=== PATIENT | female | born 1975 | race Caucasian/White ===

== ENCOUNTER 2019-04-07 06:55 | Emergency (ER) | payer BC, OTHER ==
[~2019-04-07] VITALS: Ht 177.8 cm; Wt 93.7 kg
[~2019-04-07 06:55] MED LIST: ALPR0.5T7 PO; ESCI10TA10 PO
--- NOTE | 2019-04-07 08:06 | NUR ---
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
--- NOTE | 2019-04-07 08:14 | NUR ---
THIS IS A 43 YEAR OLD FEMALE WHO C/O PT ABD PAIN AND LOWER BACK PAIN, WOKE UP ABOUT 3 AM WITH PAIN WITH URINATION AND BLOOD IN HER URINE, R FLANK PAIN WELL HX OF KIDNEY STONES
[2019-04-07] MEDS ORDERED: ONDANSETRON 2MG/ML, 2ML ONE (08:22)
[2019-04-07] MEDS ORDERED: MORPHINE SULFATE 4 MG/ML, 1ML ONE (08:22)
[2019-04-07] MEDS ORDERED: MORPHINE SULFATE 4 MG/ML, 1ML IVPush PRN (08:30)
[2019-04-07 08:39] LABS: BASOPHILS # (AUTO) 0.08 x10^3/uL (0-0.1); BASOPHILS % (AUTO) 1 % (0-1); EOSINOPHILS # (AUTO) 0.17 x10^3/uL (0-0.4); EOSINOPHILS % (AUTO) 2 % (1-7); LYMPHOCYTES # (AUTO) 1.84 x10^3/uL (1-3.4); LYMPHOCYTES % (AUTO) 16 % (22-44); MD NO; MEAN CORPUSCULAR HEMOGLOBIN 29.6 pg (27.0-34.8); MEAN CORPUSCULAR VOLUME 87.3 fL (80-100); MEAN PLATELET VOLUME 7.9 fL (7.4-10.4); MONOCYTES # (AUTO) 0.57 x10^3/uL (0.2-0.8); MONOCYTES % (AUTO) 5 % (2-9); NEUTROPHILS # (AUTO) 8.58 x10^3/uL (1.8-6.8); NEUTROPHILS % (AUTO) 76 % (42-75); PLATELET COUNT 312 x10^3/uL (130-400); RED BLOOD COUNT 4.98 x10^6/uL (3.82-5.3); RED CELL DISTRIBUTION WIDTH 13.7 % (9.6-15.2)
--- NOTE | 2019-04-07 08:47 | NUR ---
REPORT TO AIDA BOUCHER, PLAN OF CARE DISCUSSED
[2019-04-07 08:51] LABS: ALANINE AMINOTRANSFERASE 64 U/L (12-78); ALBUMIN 3.7 g/dL (3.4-5.0); ANION GAP 8 mmol/L (5-15); CALCIUM 8.9 mg/dL (8.5-10.1); CHLORIDE 107 mmol/L (98-107); CREATININE 0.89 mg/dL (0.55-1.02)
[2019-04-07 08:53] LABS: ALKALINE PHOSPHATASE 165 U/L (45-117); BILIRUBIN,TOTAL 0.4 mg/dL (0.2-1.0); TOTAL PROTEIN 7.7 g/dL (6.4-8.2)
[2019-04-07] MEDS ORDERED: ONDANSETRON 2MG/ML, 2ML IVPush ONE (09:00)
--- NOTE | 2019-04-07 09:14 | NUR ---
MEDICATED FOR PAIN, UA SENT. PT RESTING COMFORTABLE VS STABLE, NO NEEDS AT THIS TIME
[2019-04-07] MEDS ORDERED: SODIUM CHLORIDE FLUSH 10ML SYR IVF ONE (09:30)
[2019-04-07 09:37] LABS: CULTURE INDICATED? YES; MICROSCOPIC INDICATED
--- NOTE | 2019-04-07 10:42 | NUR ---
Patient/Caregiver given discharge instructions and they have confirmed that they understand the instructions. Patient ambulatory with steady gait.
[2019-04-07 10:43] VITALS: BP 136/85
== END 2019-04-07 10:45 | disposition home or self-care (01) ==
LOC: ED 08:59
DX: N30.01 Acute cystitis with hematuria (principal)
CPT/HCPCS: 36415; 74176; 80053; 81001; 83690; 85025; 87086; 87186; 96374; 96375; 99284; J2270; J2405

== ENCOUNTER 2019-05-01 16:43 | Emergency (ER) | payer BC ==
[~2019-05-01] VITALS: Ht 175.3 cm; Wt 92.0 kg
--- NOTE | 2019-05-01 16:54 | NUR ---
PT IN WITH C/O ABD THAT IS GETTING WORSE. PT STATES IT WAKES HER UP AT NIGHT. PT VERBALIZED SHE HAS BEEN TOLD THE PAIN WAS D/T UTI. PT WAS SENT BY URGENT CARE MD WHO IS CONCERNED ABOUT APPENDITIS. PT CAHNGED INTO [facility]OS[facility]ITAL [facility].
[2019-05-01] MEDS ORDERED: SODIUM CHLORIDE 0.9% 1,000 ML IV ONE (17:14)
[2019-05-01] MEDS ORDERED: MORPHINE SULFATE 4 MG/ML, 1ML IVPush PRN (17:30)
[2019-05-01] MEDS ORDERED: ONDANSETRON 2MG/ML, 2ML IVPush ONE (17:30)
[2019-05-01] MEDS ORDERED: SODIUM CHLORIDE FLUSH 10ML SYR IVF ONE (17:30)
[2019-05-01 17:42] LABS: BASOPHILS # (AUTO) 0.04 x10^3/uL (0-0.1); BASOPHILS % (AUTO) 1 % (0-1); EOSINOPHILS % (AUTO) 2 % (1-7); LYMPHOCYTES # (AUTO) 1.59 x10^3/uL (1-3.4); LYMPHOCYTES % (AUTO) 35 % (22-44); MD NO; MEAN CORPUSCULAR HEMOGLOBIN 29.6 pg (27.0-34.8); MEAN CORPUSCULAR HGB CONC 34.1 g/dL (32.4-35.8); MEAN PLATELET VOLUME 8.3 fL (7.4-10.4); MONOCYTES # (AUTO) 0.38 x10^3/uL (0.2-0.8); MONOCYTES % (AUTO) 8 % (2-9); NEUTROPHILS # (AUTO) 2.41 x10^3/uL (1.8-6.8); NEUTROPHILS % (AUTO) 53 % (42-75); PLATELET COUNT 238 x10^3/uL (130-400); RED BLOOD COUNT 4.69 x10^6/uL (3.82-5.3); RED CELL DISTRIBUTION WIDTH 13.4 % (9.6-15.2)
[2019-05-01 17:47] LABS: ALANINE AMINOTRANSFERASE 21 U/L (12-78); ALBUMIN 3.7 g/dL (3.4-5.0); ANION GAP 5 mmol/L (5-15); C-REACTIVE PROTEIN, QUANT 0.11 mg/dL (0.02-0.49); CALCIUM 8.7 mg/dL (8.5-10.1); CHLORIDE 109 mmol/L (98-107); CREATININE 0.88 mg/dL (0.55-1.02)
[2019-05-01 17:50] LABS: ALKALINE PHOSPHATASE 100 U/L (45-117); BILIRUBIN,TOTAL 0.6 mg/dL (0.2-1.0); TOTAL PROTEIN 7.1 g/dL (6.4-8.2)
[2019-05-01] MEDS ORDERED: MORPHINE SULFATE 4 MG/ML, 1ML ONE (17:51)
[2019-05-01] MEDS ORDERED: ONDANSETRON 2MG/ML, 2ML ONE (17:51)
--- NOTE | 2019-05-01 18:20 | NUR ---
pt returned from CT states pain medication and nausea meds are effective. Denies additional neeeds at this time. Bed rails up, call light within reach
[2019-05-01] MEDS ORDERED: OMNIPAQUE 350 MG/ML, 100ML BOTTLE ONE (18:25)
[2019-05-01 18:30] LABS: MICROSCOPIC NOT IND
[2019-05-01 18:55] LABS: CULTURE INDICATED? NO
[2019-05-01 19:03] VITALS: BP 139/77
--- NOTE | 2019-05-01 19:04 | NUR ---
PT RESTING ON GURNEY, MONITORS IN PLAE, SIDERAILS UP X2, CALL LIGHT WITHIN REACH. ERP AT BEDSIDE FOR RECHECK
== END 2019-05-01 19:18 ==
LOC: ED 19:12
DX: R10.31 Right lower quadrant pain (principal); R11.0 Nausea; Z90.710 Acquired absence of both cervix and uterus
CPT/HCPCS: 36415; 74177; 80053; 81003; 85025; 86140; 96374; 96375; 99284; J2270; J2405; J7030; Q9967

== ENCOUNTER → 2019-09-07 | Outpatient (CLI) | payer BC ==
[~2019-09-07] MED LIST changes: +HYDR-826 PO; +TRAM50TA2 PO
[2019-09-07 14:09] LABS: BASOPHILS # (AUTO) 0.05 x10^3/uL (0-0.1); BASOPHILS % (AUTO) 1 % (0-1); EOSINOPHILS # (AUTO) 0.18 x10^3/uL (0-0.4); EOSINOPHILS % (AUTO) 3 % (1-7); LYMPHOCYTES # (AUTO) 1.72 x10^3/uL (1-3.4); LYMPHOCYTES % (AUTO) 30 % (22-44); MD NO; MEAN CORPUSCULAR HEMOGLOBIN 28.5 pg (27.0-34.8); MEAN CORPUSCULAR HGB CONC 33.7 g/dL (32.4-35.8); MEAN CORPUSCULAR VOLUME 84.7 fL (80-100); MEAN PLATELET VOLUME 8.5 fL (7.4-10.4); MONOCYTES # (AUTO) 0.39 x10^3/uL (0.2-0.8); MONOCYTES % (AUTO) 7 % (2-9); NEUTROPHILS # (AUTO) 3.34 x10^3/uL (1.8-6.8); NEUTROPHILS % (AUTO) 59 % (42-75); PLATELET COUNT 248 x10^3/uL (130-400); RED BLOOD COUNT 4.76 x10^6/uL (3.82-5.3)
[2019-09-07 14:16] LABS: ALBUMIN 3.5 g/dL (3.4-5.0); ANION GAP 9 mmol/L (5-15); CALCIUM 8.7 mg/dL (8.5-10.1); CHLORIDE 107 mmol/L (98-107)
[2019-09-07 14:20] LABS: ALANINE AMINOTRANSFERASE 27 U/L (12-78); ALKALINE PHOSPHATASE 113 U/L (45-117); BILIRUBIN,TOTAL 0.4 mg/dL (0.2-1.0); CREATININE 0.77 mg/dL (0.55-1.02)
== END | disposition home or self-care (01) ==
LOC: STAR 12:59
PROVIDERS: ATTEND Obstetrics & Gynecology
DX: Z01.818 Encounter for other preprocedural examination (principal); N39.3 Stress incontinence (female) (male); G89.29 Other chronic pain; Z90.710 Acquired absence of both cervix and uterus
CPT/HCPCS: 36415; 80053; 85025

== ENCOUNTER 2019-09-13 10:32 | Day surgery (SDC) | payer BC ==
[~2019-09-13] VITALS: Ht 177.8 cm; Wt 92.1 kg
[~2019-09-13 10:32] MED LIST changes: +BUPIVACAINE/PF-EPI 0.25% 1:200K ONE; +DEXAMETHASONE 4 MG/ML, 1ML ONE; +FENTANYL PF 250 MCG/5ML ONE; +FLUORESCEIN SODIUM 500 MG/5 ML ONE; +GLYCOPYRROLATE 0.2MG/1ML, 5ML ONE; +KETOROLAC 30 MG/1 ML ONE; +LIDOCAINE-MPF 2% ,5ML ONE; +MIDAZOLAM 1 MG/ML, 2ML ONE; +ONDANSETRON 2MG/ML, 2ML ONE; +PROPOFOL 10 MG/ML, 20ML ONE; +ROCURONIUM 10MG/ML,5ML ONE; +SILVER NITRATE STICK TP ONE
[2019-09-13] MEDS ORDERED: LACTATED RINGERS 1,000 ML IV SCH (10:46)
[2019-09-13 10:57] VITALS: BP 115/80
[2019-09-13] MEDS ORDERED: SCOPOLAMINE 1MG PATCH TD SCH (11:00)
[2019-09-13] MEDS ORDERED: CHLORHEXIDINE 15 ML UDC MM ONE (11:00)
[2019-09-13] MEDS ORDERED: METOCLOPRAMIDE 5 MG/ML, 2ML IVPush PRN (11:30)
[2019-09-13] MEDS ORDERED: ONDANSETRON 2MG/ML, 2ML IVPush PRN (11:30)
[2019-09-13] MEDS ORDERED: MIDAZOLAM 1 MG/ML, 2ML IV PRN (11:30)
[2019-09-13] MEDS ORDERED: EPHEDRINE 50 MG/ML, 1ML IVPush PRN (11:30)
[2019-09-13] MEDS ORDERED: FENTANYL PF 100 MCG/2ML IV PRN (11:30)
[2019-09-13] MEDS ORDERED: DIAZEPAM 5 MG/ML, 2ML IVPush PRN (11:30)
[2019-09-13] MEDS ORDERED: ACETAMINOPHEN 325 MG TABLET PO PRN (11:30)
[2019-09-13] MEDS ORDERED: morphine SULFATE 10 MG/ML, 1ML IVPush PRN (11:30)
[2019-09-13] MEDS ORDERED: HYDROcodone/APAP 7.5-325MG/15ML UDC PO PRN (11:30)
[2019-09-13] MEDS ORDERED: DIPHENHYDRAMINE 50 MG/ML, 1ML IM PRN (11:30)
[2019-09-13] MEDS ORDERED: LABETALOL 5MG/ML, 20ML IV PRN (11:30)
[2019-09-13] MEDS ORDERED: DIPHENHYDRAMINE 50 MG/ML, 1ML IVPush PRN (11:30)
[2019-09-13] MEDS ORDERED: EPHEDRINE 50 MG/ML, 1ML IM PRN (11:30)
[2019-09-13] MEDS ORDERED: hydrALAzine 20 MG/ML, 1ML IV PRN (11:30)
[2019-09-13] MEDS ORDERED: ALBUTEROL/IPRATROPIUM 2.5MG/0.5MG, 3 ML NPPB PRN (11:30)
[2019-09-13] MEDS ORDERED: HALOPERIDOL 5 MG/ML IV PRN (11:30)
[2019-09-13] MEDS ORDERED: LORazepam 2 MG/ML, 1ML IVPush PRN (11:30)
[2019-09-13] MEDS ORDERED: KETOROLAC 30 MG/1 ML IVPush PRN (11:30)
[2019-09-13] MEDS ORDERED: CEFAZOLIN 1,000 MG ONE (11:34)
[2019-09-13] MEDS ORDERED: VANCOMYCIN 1,000 MG ONE (12:17)
[2019-09-13] MEDS ORDERED: GENTAMICIN 80 MG/2 ML ONE (12:17)
[2019-09-13] MEDS ORDERED: MIDAZOLAM 1 MG/ML, 2ML ONE (13:25)
[2019-09-13] MEDS ORDERED: HYDROcodone/APAP 7.5-325MG/15ML UDC ONE (13:37)
[2019-09-13] MEDS ORDERED: MEPERIDINE/PF 100 MG/ML ONE (13:37)
[2019-09-13] MEDS ORDERED: FENTANYL PF 100 MCG/2ML ONE (13:37)
[2019-09-13] MEDS: MEPERIDINE/PF 25MG/0.5ML IVPush PRN ×2 (13:49→13:57)
[2019-09-13] MEDS ORDERED: MORPHINE SULFATE 4 MG/ML, 1ML ONE (14:35)
[2019-09-13] MEDS ORDERED: OXYcodone/APAP 5/325MG TABLET PO PRN (18:30)
[2019-09-13] MEDS ORDERED: OXYcodone/APAP 5/325MG TABLET ONE (18:32)
== END 2019-09-13 19:35 | disposition home or self-care (01) ==
LOC: OUT 10:32
PROVIDERS: ATTEND Obstetrics & Gynecology
DX: G89.29 Other chronic pain (principal); R10.31 Right lower quadrant pain; Z11.59 Encounter for screening for other viral diseases; N39.3 Stress incontinence (female) (male); N81.10 Cystocele, unspecified; N83.11 Corpus luteum cyst of right ovary; N83.01 Follicular cyst of right ovary; N73.6 Female pelvic peritoneal adhesions (postinfective); F41.9 Anxiety disorder, unspecified; F32.9 Major depressive disorder, single episode, unspecified; E66.9 Obesity, unspecified; Z79.899 Other long term (current) drug therapy; Z88.8 Allergy status to other drugs, medicaments and biological substances; Z91.040 Latex allergy status; Z91.013 Allergy to seafood; Z90.710 Acquired absence of both cervix and uterus
CPT/HCPCS: 36415; 57240; 57288; 58661; 86850; 86900; 88305; C1771; J0690; J1100; J1580; J1885; J2175; J2250; J2270; J2405; J2704; J3010; J3370; J7120; U0001

== ENCOUNTER 2020-05-16 17:16 | Emergency (ER) | payer BC ==
[~2020-05-16] VITALS: Ht 177.8 cm; Wt 92.0 kg
[~2020-05-16 17:16] MED LIST changes: -BUPIVACAINE/PF-EPI 0.25% 1:200K ONE; -DEXAMETHASONE 4 MG/ML, 1ML ONE; -FENTANYL PF 250 MCG/5ML ONE; -FLUORESCEIN SODIUM 500 MG/5 ML ONE; -GLYCOPYRROLATE 0.2MG/1ML, 5ML ONE; -KETOROLAC 30 MG/1 ML ONE; -LIDOCAINE-MPF 2% ,5ML ONE; -MIDAZOLAM 1 MG/ML, 2ML ONE; -ONDANSETRON 2MG/ML, 2ML ONE; -PROPOFOL 10 MG/ML, 20ML ONE; -ROCURONIUM 10MG/ML,5ML ONE; -SILVER NITRATE STICK TP ONE
[2020-05-16] MEDS ORDERED: DEXAMETHASONE 4 MG TABLET PO ONE (17:30)
[2020-05-16] MEDS ORDERED: DEXAMETHASONE 4 MG/ML, 1ML PO ONE (17:30)
[2020-05-16] MEDS ORDERED: PLEASE ENTER HEIGHT AND WEIGHT MC SCH (17:30)
--- NOTE | 2020-05-16 18:53 | NUR ---
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
[2020-05-16] MEDS ORDERED: DEXAMETHASONE 4 MG TABLET ONE (18:59)
--- NOTE | 2020-05-16 19:24 | NUR ---
pt ambulated to room. in no acute distress at this time. no respiratory distress at this time. good aeration and oxygenation. 98% o2 sats. pt placed on o2 sat machine and waiting for md to eval. medicated per EMAR.
[2020-05-16 20:10] VITALS: BP 122/70
[2020-05-16] MEDS ORDERED: BENZOCAINE 20% SPRAY 0.5ML TP ONE (20:30)
[2020-05-16] MEDS ORDERED: LIDOCAINE 1%-EPI 1:100K, 20ML INFIL ONE (21:00)
== END 2020-05-16 21:48 ==
LOC: ED 21:15
DX: J35.8 Other chronic diseases of tonsils and adenoids (principal); J02.9 Acute pharyngitis, unspecified; Z88.9 Allergy status to unspecified drugs, medicaments and biological substances; Z85.41 Personal history of malignant neoplasm of cervix uteri; Z90.710 Acquired absence of both cervix and uterus
CPT/HCPCS: 99283